=== PATIENT | female | born 1985 | race Hispanic/Latino ===

== ENCOUNTER 2017-01-02 17:17 | Emergency (ER) | payer OTHER ==
[~2017-01-02] VITALS: Ht 165.1 cm; Wt 96.4 kg
[~2017-01-02 17:17] MED LIST: FEXO180T85 PO; FLUT9.9S NS; IMI25 PO; NADO20TA PO; NORE-101 PO
[2017-01-02 17:24] VITALS: BP 122/68; PULSE 86; RESP 14; O2SAT 99
[2017-01-02 17:56] LABS: BASOPHILS % (AUTO) 0.4 % (0-3); EOSINOPHILS % (AUTO) 0.7 % (0-5); MONOCYTES % (AUTO) 9.8 % (4-12); Mean Corpuscular Hemoglobin 27.4 pg (27.0-35.0); Mean Corpuscular Volume 80.2 fL (81-100); NEUTROPHILS % (AUTO) 62.1 % (40-74); Platelet Count 314 bil/L (150-400)
--- NOTE | 2017-01-02 18:52 | ED.REPORT ---
HPI-Abd Pain F Under 38 Date of Service Jan 02, 2017 ED Provider: Leroy Devi PA-C Donita is otherwise healthy 31-year-old female referred from urgent care of concern for appendicitis. Patient complains of abdominal pain on the first nose last night as pain across the upper quadrants of her abdomen, radiating to her back. Pain is now settled in the right lower quadrant. The patient reports she has a hearty appetite today. She last ate at 11:45. Denies fever, chills, malaise, vomiting, diarrhea, melena, hematochezia, dysuria, hematuria, vaginal bleeding/discharge, . Patient is on oral contraceptive to prevent migraines, she has not had a menstrual period in 6 weeks, which is not unusual for her. She admits to mild constipation over the last week and a sensation that her bowels do not fully empty. Nursing Notes Stated Complaint: POSSIBLE APPENDICITIS Chief Complaint: Female Abdominal Pain Nursing Notes Reviewed: Yes Allergies: Coded Allergies: No Known Allergies (Verified Allergy, Unknown, 05/18/15) Scheduled Nadolol (Nadolol) 20 Mg Tablet 80 MG PO DAILY Noreth A-Et Estra/Fe Fumarate (Loestrin Fe 1.5-30 Tablet) 1 Each Tablet 1 EACH PO DAILY Scheduled PRN Fexofenadine (Aura Allergy) 180 Mg Tablet 180 MG PO DAILY PRN PRN PRN Sumatriptan (Imitrex) 25 Mg Tablet 50 MG PO PRN Headache Miscellaneous Medications Fluticasone Propionate (Flonase Allergy Relief) 50 Mcg/Actuation [place].susp 9.9 ML NS General Time Seen by MD: 18:27 Chief Complaint Abdominal pain Past Medical History Past Medical History Migraines Depression TMJ Reports: GERD Past Surgical History Reports: Cholecystectomy Family History non-contributory Smoking History Never Smoker Social History Alcohol Use: Denies alcohol use Other Social History: Local resident Ambulatory Status Independent Review of Systems Review of Systems Note: Negative unless stated otherwise in history of present illness Physical Exam General: Well appearing, well developed, moderately obese, no acute distress. Patient is sitting comfortably on the gurney. Head: Atraumatic, normocephalic. Eyes: No scleral icterus or injection. No discharge. Vision grossly intact. ENT: Voice clear, hearing grossly intact. Respiratory: Regular rate and rhythm. Breath sounds present, clear to auscultation and equal bilaterally. No respiratory distress. No increased work of breathing, speaks in complete sentences. Cardiovascular: Regular rate and rhythm, without murmur, gallop or rub. No pedal edema. Gastrointestinal: Abdomen flat with mild tenderness in the lower quadrants most prominently on the right, near McBurney's point. Mild referred tenderness from the right upper quadrant to McBurney's point. Bowel sounds normoactive. Back: Normal to inspection, negative CVA tenderness Skin: Warm and dry. Neurological: Grossly nonfocal. Psychological: Alert and oriented. Speech appropriate, linear and logical. Behavior appropriate. Initial Vital Signs Vital Signs (First) Date Time Temp Pulse Resp B/P Pulse Ox O2 Delivery O2 Flow Rate FiO2 01/02/17 17:24 37.1 86 14 122/68 99 Room Air Normal Interpretation & Diagnostics Lab Results Interpretation Result Diagram: 01/02/17 1748 01/02/17 1748 Test 01/02/17 17:48 01/02/17 19:03 White Blood Count 8.2th/mm3 (3.8-10.1) Red Blood Count 5.21mil/mm3 (3.90-5.20) Hemoglobin 14.3g/dL (12.0-15.6) Hematocrit 41.8% (35.0-46.0) Mean Corpuscular Volume 80.2fL (81-100) Mean Corpuscular Hemoglobin 27.4pg (27.0-35.0) Mean Corpuscular Hemoglobin Concent 34.2% (32.0-37.0) Red Cell Distribution Width 13.5% (12.3-15.4) Platelet Count 314bil/L (150-400) Neutrophils (%) (Auto) 62.1% (40-74) Lymphocytes (%) (Auto) 26.8% (14-46) Monocytes (%) (Auto) 9.8% (4-12) Eosinophils (%) (Auto) 0.7% (0-5) Basophils (%) (Auto) 0.4% (0-3) Sodium Level 137mEq/L (134-144) Potassium Level 4.3mEq/L (3.5-5.2) Chloride Level 102mEq/L (97-108) Carbon Dioxide Level 19mmol/L (18-29) Blood Urea Nitrogen 13mg/dL (6-20) Creatinine 0.49mg/dL (0.57-1.00) Estimat Glomerular Filtration Rate 208mL/min (>59) Glucose Level 90mg/dL (60-99) Calcium Level 9.1mg/dL (8.5-10.1) Magnesium Level 2.0mg/dL (1.6-2.6) Total Bilirubin 0.3mg/dL (0.0-1.2) Aspartate Amino Transf (AST/SGOT) 29U/L (0-50) Alanine Aminotransferase (ALT/SGPT) 34U/L (0-32) Alkaline Phosphatase 61U/L (25-150) Total Protein 8.1g/dL (6.4-8.4) Albumin 4.1g/dL (3.4-5.0) Lipase 29U/L (13-60) Hold [place] Top Tube Received (Received) Urine Color Yellow (YELLOW) Urine Appearance Clear (CLEAR,HAZY) Urine pH 5.5 (5.0-8.0) Urine Specific [place] <1.005 (1.003-1.035) Urine Protein Negativemg/dL (NEG,TRACE) Urine Glucose (UA) Negativemg/dL (NEGATIVE) Urine Ketones Negativemg/dL (NEGATIVE) Urine Occult Blood Negative (NEGATIVE) Urine Nitrite Negative (NEGATIVE) Urine Bilirubin Negative (NEGATIVE) Urine Urobilinogen Normalmg/dL (NORMAL) Urine Leukocyte Esterase Negative (NEGATIVE) Urine RBC 0-2/hpf (0-2) Urine WBC 0-5/hpf (0-5) Urine Epithelial Cells Many/hpf (NONE-MOD) Urine Crystals None seen (NONE SEEN) Urine Bacteria Moderate/hpf (NONE-FEW) Urine Hyaline Casts None/lpf (NONE) Urine Granular Casts None seen (NONE SEEN) Urine Waxy Casts None seen (NONE SEEN) Urine Red Blood Cell Casts None seen (NONE SEEN) Urine White Blood Cell Casts None seen (NONE SEEN) Urine Mucus None seen (None Seen) Urine Trichomonas None seen (NONE SEEN) Urine Yeast None (NONE SEEN) Urinalysis Comment None Urine Culture Reflexed Indicated Hold Urine Received (Received) CT Abd / Pelvis Interpretation PROCEDURE: CT ABDOMEN AND PELVIS WITH CONTRAST ([id number]) INDICATIONS: right lower quadrant tenderness IMPRESSION: 1. Normal appendix. No CT findings to explain abdominal pain. 2. A 1.7 cm indeterminate low-density nodule in the superior pole of the right kidney, most likely a cyst. Interpretation / Wet Read by: Interpret - Radiologist Re-Eval/Medical Decision Med Decision/Clinical Course Otherwise only 31-year-old female referred from urgent care for concern for appendicitis. Abdominal pain since last night first never question settling in the right lower quadrant. Complains of constipation one week and sensation not fully emptying her bowels. Negative fever, vomiting, diarrhea, urinary symptoms , , anorexia. On physical examination the patient appears quite well with mild tenderness in both lower quadrants most primarily on the right McBurney's point. Some mild referred tenderness from the right upper quadrant to McBurney's point. Negative psoas, obturator sign. Percussion of the right heel causes no pain. CBC and CMP are unremarkable, with negative leukocytosis. Dip urinalysis is normal. I discussed case with Dr. Guardado, who met with and examine the patient. Discussed with the patient options of performing CT scan, ultrasound or observation, weighing risks and benefits of each. Patient prefers to perform CT scan. CT scan visualizes a normal appendix without stranding. A 1.7 cm low density nodule, identified by radiologist as likely a cyst is noted on the superior pole of the right kidney. I discussed this finding with the patient. Urinalysis reveals a high number of epithelial cells as well as bacteria. I believe this is most likely secondary to the dirty UA and does not represent a urinary tract infection. I discussed this with the patient and advised that samples been sent for culture, she will be notified if it requires treatment. At this point I am reassured against appendicitis, diverticulitis, perforation, ovarian torsion, ovarian cyst. I believe the patient is stable and safe to be discharged to home. I discussed this with the patient, advising of magnesia, MiraLAX to relieve constipation. Also advised the patient take her Prilosec daily for 2 weeks. Patient will follow up with her primary care provider next week. Provided strict emergent return precautions patient verbalizes understanding of and content to the plan. Discharge & Departure Primary Impression: Abdominal pain Abdominal location: right lower quadrant Qualified Code: R10.31 - Right lower quadrant pain Disposition: Home Discharge Condition All VS Reviewed: Yes Patient Instructions: Acute Abdominal Pain (ED) Additional Instructions: Evaluation in the emergency department for abdominal pain includes history, physical examination, urinalysis, blood work and CT scan, all of which are reassuring that your pain is unlikely to be caused by dangerous conditions such as appendicitis. We believe you are stable and safe to go home. Urinalysis is reassuring that you do not have a urinary tract infection, although some bacteria are noted. This is been sent to the lab for culture, and you will be notified if this requires treatment. Her pain may be caused by constipation. I recommend [id number] milk of magnesia or MiraLAX stool softener. I also recommend that you take your Prilosec daily for the next 2 weeks. Follow-up with your primary care provider as planned, and return to emergency department for any new or worsening symptoms including increasing pain, vomiting , fever. Referrals: Jazmyn Lozano MD (PCP) EDSupervising Provider for APC: Ari Guardado MD Attending Statment I personally examined this patient and agree with above. copies to: Jazmyn Lozano MD, Seth PA-C Jan 02, 2017 18:52 Ari Guardado MD Jan 03, 2017 01:12
[2017-01-02 19:27] VITALS: BP 147/95; PULSE 84; RESP 14; O2SAT 96
[2017-01-02 19:39] LABS: APPEARANCE,URINE CLEAR (CLEAR,HAZY); COLOR,URINE YELLOW (YELLOW); PH,URINE 5.5 (5.0-8.0)
[2017-01-02 19:40] LABS: OCCULT BLOOD,URINE NEGATIVE (NEGATIVE); UROBILINOGEN,URINE NORMAL (NORMAL)
--- NOTE | 2017-01-02 19:54 | DRSVH ---
PROCEDURE: CT ABDOMEN AND PELVIS WITH CONTRAST ([id number]) INDICATIONS: right lower quadrant tenderness TECHNIQUE: After the administration of intravenous contrast, 5 mm thick sections acquired from the diaphragm to the symphysis. 5 mm coronal and sagittal reformats were acquired. For radiation dose reduction, the following was used: automated exposure control, adjustment of mA and/or kV according to patient sisparkle e. COMPARISON: [facility], [place], US ABDOMEN, 02/11/2015, 18:08. [facility] , CT, ABD/PELVIS W/CON (PNL), 01/18/2007, 18:58. [facility], [place], CT ABD PELVIS W CON, 05/15, 9:40. FINDINGS: Image quality: Excellent. ABDOMEN: Lung bases: Lung bases are clear. Heart size is normal. Small hiatal hernia. Solid organs: Liver and spleen are normal in size and enhancement. There is a 1.3 cm splenule. Gall bladder is surgically absent. Biliary system is non dilated. Pancreas enhances normally. No adrena l nodules. Kidneys demonstrate normal size and enhancement, without hydronephrosis. There is a 1.7 cm low density nodule in the superior pole the right kidney. Peritoneum and bowel: Bowel loops demonstrate normal wall thickness and caliber. Appendix is normal . No free fluid or air. Nodes and vessels: No retroperitoneal or mesenteric adenopathy by size criteria. Aorta and inferior vena cava are normal in size. Miscellaneous: No ventral hernias. PELVIS: Genitourinary: Bladder wall thickness is normal. Uterus and ovaries are unremarkable. No pathologic al physical. Miscellaneous: No inguinal hernias or adenopathy. Bones: No suspicious bony lesions. No vertebral body compression fractures. IMPRESSION: 1. Normal appendix. No CT findings to explain abdominal pain. 2. A 1.7 cm indeterminate low-density nodule in the superior pole of the right kidney, most likely a cyst. Dictated by: Humberto Suarez M.D. on 01/02/2017 at 19:41 Approved by: Humberto Suarez M.D. on 01/02/2017 at 19:53
[2017-01-02 20:25] VITALS: BP 134/93; PULSE 80; O2SAT 100
== END 2017-01-02 20:26 | disposition home or self-care (01) ==
LOC: SED 17:17
DX: R10.31 Right lower quadrant pain (principal); F32.9 Major depressive disorder, single episode, unspecified; K21.9 Gastro-esophageal reflux disease without esophagitis; G43.909 Migraine, unspecified, not intractable, without status migrainosus; Z90.49 Acquired absence of other specified parts of digestive tract
CPT/HCPCS: 36415; 74177; 80053; 81000; 81025; 83690; 83735; 85025; 87086; 87088; 99284; Q9967